=== PATIENT | female | born 1990 | race African-American/Black ===

== ENCOUNTER 2018-04-15 11:28 | Emergency (ER) | payer MEDICAID ==
[~2018-04-15] VITALS: Ht 160 cm; Wt 63.5 kg
[2018-04-15 11:53] VITALS: BP 152/78
[2018-04-15] MEDS ORDERED: SODIUM CHLORIDE 0.9% 1,000 ML IVB ONE (12:53)
[2018-04-15] MEDS ORDERED: LORazepam 2MG/ML-1ML VIAL IV ONE (14:00)
[2018-04-15 14:07] LABS: Basophils # (auto) 0.1 uL; Basophils % (auto) 1.1 % (0.0-2.0); Eosinophils # (auto) 0 uL; Eosinophils % (auto) 0.5 % (0.0-7.0); Hematocrit 47.3 % (36.0-46.0); Hemoglobin 15.6 g/dL (12.2-16.2); Lymphocytes # (auto) 2.5 uL; Lymphocytes % (auto) 32.4 % (10.0-50.0); Mean Corpuscular Hemoglobin 28.4 pg (28.0-32.0); Mean Corpuscular Volume 86.1 fL (80.0-100.0); Monocytes # (auto) 0.3 uL; Monocytes % (auto) 3.3 % (0.0-12.0); Neutrophils # (auto) 4.8 uL; Neutrophils % (auto) 62.7 % (37.0-80.0); Nucleated Red Blood Cells % 0.1 %; Platelet Count (auto) 300 10^3/uL (140-450); Red Blood Cells 5.49 10^6/uL (4.0-5.20); Red Cell Distribution Width 15.4 % (11.8-14.3); White Blood Cell 7.7 10^3/uL (4.4-10.8)
[2018-04-15 14:26] LABS: Alanine Aminotransferase 37 U/L (13-56); Albumin 4.2 g/dL (3.4-5.0); Anion Gap 12 (5-15); Aspartate Aminotransferase 33 U/L (15-37); BUN/Creatinine Ratio 9.7; Blood Urea Nitrogen 10 mg/dL (7-18); Calcium 8.3 mg/dL (8.5-10.1); Carbon Dioxide 22 mmol/L (21-32); Chloride 109 mmol/L (98-107); GFR African American 81 mL/min; GFR Non-African American 67 mL/min; Glucose 75 mg/dL (74-106); Potassium 4.1 mmol/L (3.5-5.1); Sodium 143 mmol/L (136-145)
[2018-04-15 14:38] LABS: Alkaline Phosphatase 78 U/L (45-117); Bilirubin, Total 1.1 mg/dL (0.2-1.0); Total Protein 8.7 g/dL (6.4-8.2)
[2018-04-15 14:46] LABS: Blood Alcohol 329.6 mg/dL (0-5)
== END 2018-04-15 16:16 | disposition left against medical advice (07) ==
LOC: ER 11:28
DX: F32.9 Major depressive disorder, single episode, unspecified (principal); F10.10 Alcohol abuse, uncomplicated; R10.9 Unspecified abdominal pain; J45.909 Unspecified asthma, uncomplicated; F17.210 Nicotine dependence, cigarettes, uncomplicated
CPT/HCPCS: 36415; 80053; 80320; 85025; 94761

== ENCOUNTER 2018-04-28 17:30 | Emergency (ER) | payer MEDICAID ==
[~2018-04-28] VITALS: Ht 160 cm; Wt 66.2 kg
[2018-04-28 18:08] VITALS: BP 119/79
[2018-04-28 18:43] LABS: Urine WBC None Seen /hpf (0 - 5)
[2018-04-28 18:51] LABS: Urine Bacteria NONE SEEN /hpf (None Seen); Urine Blood Negative /uL (Negative); Urine Specific Gravity 1.001 (1.001-1.035)
[2018-04-28 18:55] LABS: Basophils # (auto) 0 uL; Basophils % (auto) 0.5 % (0.0-2.0); Eosinophils # (auto) 0.1 uL; Eosinophils % (auto) 1.7 % (0.0-7.0); Hematocrit 46.9 % (36.0-46.0); Hemoglobin 15.5 g/dL (12.2-16.2); Lymphocytes # (auto) 1.3 uL; Lymphocytes % (auto) 20.6 % (10.0-50.0); Mean Corpuscular Hemoglobin 28.7 pg (28.0-32.0); Mean Corpuscular Hgb Conc. 33.1 g/dL (32.0-36.0); Mean Corpuscular Volume 86.7 fL (80.0-100.0); Monocytes # (auto) 0.4 uL; Monocytes % (auto) 5.6 % (0.0-12.0); Neutrophils # (auto) 4.6 uL; Neutrophils % (auto) 71.6 % (37.0-80.0); Nucleated Red Blood Cells % 0.1 %; Platelet Count (auto) 190 10^3/uL (140-450); Red Blood Cells 5.41 10^6/uL (4.0-5.20); Red Cell Distribution Width 15.7 % (11.8-14.3); White Blood Cell 6.4 10^3/uL (4.4-10.8)
[2018-04-28 19:06] LABS: Amphetamine Screen, Urine NEGATIVE (NEGATIVE); Barbiturate Scree,Urine NEGATIVE (NEGATIVE); Benzodiazephine Screen, Urine NEGATIVE (NEGATIVE); Cannabinoid Screen, Urine NEGATIVE (NEGATIVE); Cocaine Screen, Urine NEGATIVE (NEGATIVE); Opiate Scree,Urine NEGATIVE (NEGATIVE); Phencyclidine Screen, Urine NEGATIVE (NEGATIVE)
[2018-04-28 19:07] LABS: Albumin 4.6 g/dL (3.4-5.0); Potassium 3.4 mmol/L (3.5-5.1)
[2018-04-28 19:08] LABS: Salicylate 2.5 mg/dL (2.8-20.0)
[2018-04-28 19:11] LABS: Bilirubin, Total 0.6 mg/dL (0.2-1.0); Total Protein 9.1 g/dL (6.4-8.2)
[2018-04-28 19:23] LABS: Acetaminophen < 2.0 ug/mL (10-30)
[2018-04-29] MEDS ORDERED: MULTIPLE VITAMIN 10 ML, MAGNESIUM SULF SDV 50% 8 MEQ in SODIUM CHLORIDE 0.9% 1,000 ML IV SCH (12:00)
== END 2018-04-29 01:55 | disposition left against medical advice (07) ==
LOC: ER 17:48
DX: R56.9 Unspecified convulsions (principal); Z53.21 Procedure and treatment not carried out due to patient leaving prior to being seen by health care provider
CPT/HCPCS: 36415; 80053; 80307; 80320; 80329; 81001; 85025; 93005

== ENCOUNTER 2019-10-01 16:40 | Emergency (ER) | payer MEDICAID ==
[~2019-10-01] VITALS: Ht 160 cm; Wt 63.5 kg
[2019-10-01 16:53] VITALS: BP 152/107
[2019-10-01] MEDS ORDERED: KETOROLAC TROMETH 60MG/2ML VIAL IM ONE (17:45)
== END 2019-10-01 18:09 | disposition home or self-care (01) ==
LOC: ER 16:40
DX: H66.93 Otitis media, unspecified, bilateral (principal); F17.210 Nicotine dependence, cigarettes, uncomplicated; J45.909 Unspecified asthma, uncomplicated; F41.9 Anxiety disorder, unspecified; F32.9 Major depressive disorder, single episode, unspecified
CPT/HCPCS: 96372; 99283; J1885

== ENCOUNTER 2019-10-01 18:52 | Emergency (ER) | payer MEDICAID ==
[~2019-10-01] VITALS: Ht 160 cm; Wt 63.5 kg
[2019-10-01 19:03] VITALS: BP 152/105
[2019-10-01] MEDS ORDERED: SODIUM CHLORIDE 0.9% 1,000 ML IV ONE (19:22)
[2019-10-01] MEDS ORDERED: LORazepam 2MG/ML-1ML VIAL IV ONE (19:30)
[2019-10-01] MEDS ORDERED: ONDANSETRON HCL 4 MG/2 ML VIAL IV ONE (19:30)
[2019-10-01 20:23] LABS: Basophils # (auto) 0 10 ^3/uL (0-0.2); Basophils % (auto) 0.8 % (0.0-2.0); Eosinophils # (auto) 0 10 ^3/uL (0-0.8); Eosinophils % (auto) 0.4 % (0.0-7.0); Hematocrit 44.3 % (36.0-46.0); Hemoglobin 14.2 g/dL (12.2-16.2); Lymphocytes # (auto) 1.7 10 ^3/uL (0.4-5.4); Lymphocytes % (auto) 30.5 % (10.0-50.0); Mean Corpuscular Hgb Conc. 32.1 g/dL (32.0-36.0); Mean Corpuscular Volume 87.3 fL (80.0-100.0); Monocytes # (auto) 0.4 10 ^3/uL (0-1.3); Monocytes % (auto) 7.3 % (0.0-12.0); Neutrophils # (auto) 3.4 10 ^3/uL (1.6-8.6); Platelet Count (auto) 145 10^3/uL (140-450); Red Blood Cells 5.08 10^6/uL (4.0-5.20); White Blood Cell 5.5 10^3/uL (4.4-10.8)
[2019-10-01 20:39] LABS: Albumin 3.9 g/dL (3.4-5.0); Calcium 8.7 mg/dL (8.5-10.1); Potassium 3.5 mmol/L (3.5-5.1)
[2019-10-01 20:48] LABS: Bilirubin, Total 0.6 mg/dL (0.2-1.0)
[2019-10-01 20:51] LABS: BUN/Creatinine Ratio 8.2
== END 2019-10-01 23:51 | disposition home or self-care (01) ==
LOC: ER 18:52
DX: F10.239 Alcohol dependence with withdrawal, unspecified (principal)
CPT/HCPCS: 36415; 80053; 80320; 85025

== ENCOUNTER 2020-05-07 09:38 | Inpatient (IN) | payer MEDICAID ==
[~2020-05-07] VITALS: Ht 162.6 cm; Wt 61.2 kg
[2020-05-07] MEDS ORDERED: MORPHINE SULFATE 4 MG/ML SYR/VIAL IV ONE ×2 (10:15→12:30)
[2020-05-07] MEDS ORDERED: PROMETHAZINE HCL 25 MG/ML 1ML IV PRN (10:15)
[2020-05-07] MEDS ORDERED: SODIUM CHLORIDE 0.9% 1,000 ML IV ONE (10:15)
[2020-05-07 10:50] LABS: Basophils # (auto) 0 10 ^3/uL (0-0.2); Basophils % (auto) 0.5 % (0.0-2.0); Eosinophils # (auto) 0 10 ^3/uL (0-0.8); Eosinophils % (auto) 0.6 % (0.0-7.0); Hematocrit 39.9 % (36.0-46.0); Hemoglobin 13.4 g/dL (12.2-16.2); Lymphocytes # (auto) 0.6 10 ^3/uL (0.4-5.4); Lymphocytes % (auto) 9.7 % (10.0-50.0); Mean Corpuscular Hemoglobin 29.8 pg (28.0-32.0); Mean Corpuscular Hgb Conc. 33.7 g/dL (32.0-36.0); Mean Corpuscular Volume 88.6 fL (80.0-100.0); Monocytes # (auto) 0.8 10 ^3/uL (0-1.3); Monocytes % (auto) 12.2 % (0.0-12.0); Neutrophils # (auto) 4.8 10 ^3/uL (1.6-8.6); Nucleated Red Blood Cells % 0.1 %; White Blood Cell 6.2 10^3/uL (4.4-10.8)
[2020-05-07 10:53] LABS: Urine Bacteria FEW /hpf (None Seen); Urine Blood TRACE /uL (Negative); Urine Mucus FEW (None Seen); Urine Specific Gravity 1.035 (1.001-1.035); Urine WBC 4 /hpf (0 - 5)
[2020-05-07 10:54] LABS: Albumin 3.9 g/dL (3.4-5.0); Calcium 9.4 mg/dL (8.5-10.1); Potassium 3.4 mmol/L (3.5-5.1)
[2020-05-07 11:03] LABS: BUN/Creatinine Ratio 12.2; Bilirubin, Total 1.4 mg/dL (0.2-1.0)
[2020-05-07] MEDS ORDERED: SODIUM CHLORIDE 0.9% 1,000 ML IVB ONE (12:30)
[2020-05-07] MEDS ORDERED: METOCLOPRAMIDE HCL 5MG/ml INJ 2ml VIAL IV ONE (12:30)
[2020-05-07] MEDS ORDERED: NITROGLYCERIN 0.4 MG SL TAB SL PRN (13:15)
[2020-05-07] MEDS ORDERED: MORPHINE SULFATE INJECTION 2 MG/ML SYRG IV PRN (13:15)
[2020-05-07] MEDS ORDERED: D5W/LACTATED RINGERS 1,000 ML IV ONE (13:15)
[2020-05-07 13:56] LABS: Alcohol, Urine < 3.0 mg/dL (0-10); Amphetamine Screen, Urine NEGATIVE (NEGATIVE); Barbiturate Scree,Urine NEGATIVE (NEGATIVE); Benzodiazephine Screen, Urine NEGATIVE (NEGATIVE); Cannabinoid Screen, Urine NEGATIVE (NEGATIVE); Cocaine Screen, Urine POSITIVE (NEGATIVE); Opiate Scree,Urine NEGATIVE (NEGATIVE); Phencyclidine Screen, Urine NEGATIVE (NEGATIVE)
[2020-05-07] MEDS ORDERED: ACETAMINOPHEN 500 MG TAB PO PRN (14:30)
[2020-05-07] MEDS ORDERED: cloNIDine HCL 0.1 MG TAB PO PRN (14:30)
[2020-05-07] MEDS: D5W/LACTATED RINGERS 1,000 ML IV SCH ×2 (15:08→21:10)
[2020-05-07] MEDS: ONDANSETRON HCL 4 MG/2 ML VIAL IV PRN (15:58)
[2020-05-07] MEDS: MORPHINE SULFATE INJECTION 2 MG/ML SYRG IV PRN ×3 (15:58→22:00)
[2020-05-07] MEDS ORDERED: LORazepam 2MG/ML-1ML VIAL IV PRN (16:15)
[2020-05-07 16:49] VITALS: BP 121/88
[2020-05-07 17:00] VITALS: BP 121/88
[2020-05-07 21:51] VITALS: BP 140/101
[2020-05-08] MEDS: MORPHINE SULFATE INJECTION 2 MG/ML SYRG IV PRN ×7 (01:06→21:22)
[2020-05-08] MEDS: D5W/LACTATED RINGERS 1,000 ML IV SCH ×4 (03:45→21:45)
[2020-05-08 05:00] VITALS: BP 125/89
[2020-05-08 07:53] LABS: Basophils # (auto) 0 10 ^3/uL (0-0.2); Basophils % (auto) 0.7 % (0.0-2.0); Eosinophils # (auto) 0.1 10 ^3/uL (0-0.8); Eosinophils % (auto) 1.2 % (0.0-7.0); Hematocrit 36.5 % (36.0-46.0); Hemoglobin 12.4 g/dL (12.2-16.2); Lymphocytes # (auto) 0.8 10 ^3/uL (0.4-5.4); Lymphocytes % (auto) 11.4 % (10.0-50.0); Mean Corpuscular Hemoglobin 30.3 pg (28.0-32.0); Mean Corpuscular Hgb Conc. 34.1 g/dL (32.0-36.0); Monocytes # (auto) 0.9 10 ^3/uL (0-1.3); Monocytes % (auto) 12.5 % (0.0-12.0); Neutrophils # (auto) 5.1 10 ^3/uL (1.6-8.6); Neutrophils % (auto) 74.2 % (37.0-80.0); Nucleated Red Blood Cells % 0.1 %; Red Cell Distribution Width 18.4 % (11.8-14.3); White Blood Cell 6.9 10^3/uL (4.4-10.8)
[2020-05-08 08:10] LABS: Albumin 3.5 g/dL (3.4-5.0); BUN/Creatinine Ratio 13.2; Calcium 8.5 mg/dL (8.5-10.1)
[2020-05-08 08:20] LABS: Bilirubin, Total 1.2 mg/dL (0.2-1.0); Total Protein 7.2 g/dL (6.4-8.2)
[2020-05-08] MEDS: PANTOPRAZOLE 40 MG/10 ML VIAL INJ IV SCH (08:52)
[2020-05-08 09:05] VITALS: BP 131/91
[2020-05-08 09:08] LABS: Potassium 3.3 mmol/L (3.5-5.1)
[2020-05-08 13:26] VITALS: BP 149/92
[2020-05-08] MEDS ORDERED: POTASSIUM CHLORIDE 40 MEQ, LIDOCAINE 1% (LOCAL ANESTH.) 4 ML in SODIUM CHL 0.9% 250 ML IV ONE (13:45)
[2020-05-08 16:37] VITALS: BP 151/96
[2020-05-08 22:00] VITALS: BP 141/95
[2020-05-09] MEDS: ONDANSETRON HCL 4 MG/2 ML VIAL IV PRN (00:16)
[2020-05-09] MEDS: MORPHINE SULFATE INJECTION 2 MG/ML SYRG IV PRN ×6 (00:22→22:14)
[2020-05-09 05:00] VITALS: BP 123/76
[2020-05-09] MEDS: D5W/LACTATED RINGERS 1,000 ML IV SCH ×3 (05:45→21:45)
[2020-05-09 06:59] LABS: Albumin 3.4 g/dL (3.4-5.0); Potassium 3.3 mmol/L (3.5-5.1)
[2020-05-09 07:09] LABS: BUN/Creatinine Ratio 6.7; Bilirubin, Total 1.1 mg/dL (0.2-1.0); Total Protein 7.1 g/dL (6.4-8.2)
[2020-05-09 08:06] VITALS: BP 140/80
[2020-05-09] MEDS: PANTOPRAZOLE 40 MG/10 ML VIAL INJ IV SCH (10:57)
[2020-05-09 12:00] VITALS: BP 147/98
[2020-05-09] MEDS ORDERED: POTASSIUM CHLORIDE 40 MEQ, LIDOCAINE 1% (LOCAL ANESTH.) 4 ML in SODIUM CHL 0.9% 250 ML IV ONE ×2 (15:00→18:30)
[2020-05-09] MEDS: MAGNESIUM SULFATE 1GM/100ML 100 ML IV SCH ×2 (16:28→17:33)
[2020-05-09 17:02] VITALS: BP 146/95
[2020-05-09] MEDS: OXYCODONE W/ ACETAMINOPHEN 5/325MG TABLET PO PRN (18:09)
[2020-05-09 22:00] VITALS: BP 131/95
[2020-05-10] MEDS: OXYCODONE W/ ACETAMINOPHEN 5/325MG TABLET PO PRN ×4 (01:25→21:59)
[2020-05-10] MEDS: MORPHINE SULFATE INJECTION 2 MG/ML SYRG IV PRN ×5 (01:35→20:27)
[2020-05-10 05:00] VITALS: BP 131/95
[2020-05-10] MEDS: D5W/LACTATED RINGERS 1,000 ML IV SCH (06:15)
[2020-05-10 07:18] LABS: Basophils # (auto) 0.1 10 ^3/uL (0-0.2); Basophils % (auto) 1.3 % (0.0-2.0); Eosinophils # (auto) 0.1 10 ^3/uL (0-0.8); Eosinophils % (auto) 1.6 % (0.0-7.0); Hematocrit 36.8 % (36.0-46.0); Hemoglobin 12.3 g/dL (12.2-16.2); Lymphocytes # (auto) 0.7 10 ^3/uL (0.4-5.4); Mean Corpuscular Hemoglobin 29.7 pg (28.0-32.0); Mean Corpuscular Hgb Conc. 33.4 g/dL (32.0-36.0); Monocytes # (auto) 0.8 10 ^3/uL (0-1.3); Monocytes % (auto) 13.6 % (0.0-12.0); Neutrophils # (auto) 3.9 10 ^3/uL (1.6-8.6); Neutrophils % (auto) 70.5 % (37.0-80.0); Nucleated Red Blood Cells % 0.1 %; Red Blood Cells 4.14 10^6/uL (4.0-5.20); Red Cell Distribution Width 17.9 % (11.8-14.3); White Blood Cell 5.6 10^3/uL (4.4-10.8)
[2020-05-10 07:33] LABS: INR 1.09 (0.9-1.15)
[2020-05-10 07:41] LABS: Potassium 3.4 mmol/L (3.5-5.1)
[2020-05-10 07:54] LABS: Albumin 3.3 g/dL (3.4-5.0); BUN/Creatinine Ratio 3.6; Calcium 9.1 mg/dL (8.5-10.1); Magnesium 2.3 mg/dL (1.6-2.6); Total Protein 6.8 g/dL (6.4-8.2)
[2020-05-10 08:19] VITALS: BP 154/97
[2020-05-10] MEDS: PANTOPRAZOLE 40 MG/10 ML VIAL INJ IV SCH (09:00)
[2020-05-10] MEDS: POTASSIUM CHLORIDE 40 MEQ in D5W/LACTATED RINGERS 1,000 ML IV SCH ×2 (12:13→23:00)
[2020-05-10 12:44] VITALS: BP 155/108
[2020-05-10 16:24] VITALS: BP 144/96
[2020-05-10 22:23] VITALS: BP 139/101
[2020-05-11] MEDS: MORPHINE SULFATE INJECTION 2 MG/ML SYRG IV PRN ×4 (01:33→15:25)
[2020-05-11 04:00] VITALS: BP 137/99
[2020-05-11 06:52] LABS: Calcium 9.1 mg/dL (8.5-10.1); Potassium 3.5 mmol/L (3.5-5.1)
[2020-05-11 06:54] LABS: BUN/Creatinine Ratio 3.3
[2020-05-11] MEDS: OXYCODONE W/ ACETAMINOPHEN 5/325MG TABLET PO PRN ×3 (07:06→18:16)
[2020-05-11 08:59] VITALS: BP 140/97
[2020-05-11] MEDS: PANTOPRAZOLE 40 MG/10 ML VIAL INJ IV SCH (09:14)
[2020-05-11] MEDS: POTASSIUM CHLORIDE 40 MEQ in D5W/LACTATED RINGERS 1,000 ML IV SCH ×2 (11:46→18:00)
[2020-05-11 13:00] VITALS: BP 128/90
[2020-05-11] MEDS ORDERED: FOLIC ACID 1 MG TAB PO ONE (14:00)
[2020-05-11] MEDS ORDERED: THIAMINE HCL 100 MG TAB PO ONE (14:00)
[2020-05-11] MEDS ORDERED: FOLI1TAB6 PO (14:05)
[2020-05-11] MEDS ORDERED: THIA100T5 PO (14:05)
[2020-05-11 16:45] VITALS: BP 132/97
[2020-05-11 17:37] VITALS: BP 132/97
[2020-05-12] MEDS ORDERED: FOLIC ACID 1 MG TAB PO SCH (10:00)
[2020-05-12] MEDS ORDERED: THIAMINE HCL 100 MG TAB PO SCH (10:00)
== END 2020-05-11 19:47 | disposition home or self-care (01) | DRG 282 ==
LOC: ER 09:38 → TELE 13:15 → TELE-CENTR 16:27
PROVIDERS: ADMIT Hospitalist; ATTEND Hospitalist
DX: K85.10 Biliary acute pancreatitis without necrosis or infection (principal); K70.0 Alcoholic fatty liver; E87.6 Hypokalemia; N39.0 Urinary tract infection, site not specified; N83.202 Unspecified ovarian cyst, left side; Z20.822 Contact with and (suspected) exposure to COVID-19; K80.20 Calculus of gallbladder without cholecystitis without obstruction; R79.89 Other specified abnormal findings of blood chemistry; F41.9 Anxiety disorder, unspecified; F14.10 Cocaine abuse, uncomplicated; E27.8 Other specified disorders of adrenal gland; E87.1 Hypo-osmolality and hyponatremia; F10.20 Alcohol dependence, uncomplicated; F17.210 Nicotine dependence, cigarettes, uncomplicated; J45.909 Unspecified asthma, uncomplicated; F32.9 Major depressive disorder, single episode, unspecified
CPT/HCPCS: 36415; 71045; 74176; 74181; 76705; 80048; 80053; 80307; 81001; 82150; 83690; 83735; 84702; 85025; 85610; 87426; 93005; 96361; 96374; 96375; C9113; G0378; J2001; J2405

== ENCOUNTER 2020-07-22 10:17 | Emergency (ER) | payer MEDICAID ==
[~2020-07-22] VITALS: Ht 160 cm; Wt 59.0 kg
[~2020-07-22 10:17] MED LIST: FOLI1TAB6 PO; THIA100T5 PO
[2020-07-22 10:21] VITALS: BP 148/102
[2020-07-22 10:35] LABS: Urine WBC None Seen /hpf (0 - 5)
[2020-07-22 10:41] LABS: Basophils # (auto) 0 10 ^3/uL (0-0.2); Basophils % (auto) 0.7 % (0.0-2.0); Eosinophils # (auto) 0 10 ^3/uL (0-0.8); Eosinophils % (auto) 0.5 % (0.0-7.0); Hematocrit 39.1 % (36.0-46.0); Lymphocytes % (auto) 17.4 % (10.0-50.0); Mean Corpuscular Hemoglobin 31.3 pg (28.0-32.0); Mean Corpuscular Hgb Conc. 33.3 g/dL (32.0-36.0); Mean Corpuscular Volume 93.9 fL (80.0-100.0); Monocytes # (auto) 0.3 10 ^3/uL (0-1.3); Monocytes % (auto) 4.9 % (0.0-12.0); Neutrophils # (auto) 4.2 10 ^3/uL (1.6-8.6); Neutrophils % (auto) 76.5 % (37.0-80.0); Red Blood Cells 4.16 10^6/uL (4.0-5.20); Red Cell Distribution Width 17.3 % (11.8-14.3); White Blood Cell 5.5 10^3/uL (4.4-10.8)
[2020-07-22 10:51] LABS: Amphetamine Screen, Urine NEGATIVE (NEGATIVE); Barbiturate Scree,Urine NEGATIVE (NEGATIVE); Benzodiazephine Screen, Urine NEGATIVE (NEGATIVE); Cannabinoid Screen, Urine NEGATIVE (NEGATIVE); Cocaine Screen, Urine NEGATIVE (NEGATIVE); Opiate Scree,Urine NEGATIVE (NEGATIVE); Phencyclidine Screen, Urine NEGATIVE (NEGATIVE)
[2020-07-22 10:53] LABS: Urine Amorphous Crystal FEW /hpf (None Seen); Urine Bacteria FEW /hpf (None Seen); Urine Blood Negative /uL (Negative); Urine Mucus FEW (None Seen); Urine Specific Gravity 1.015 (1.001-1.035)
[2020-07-22 10:57] LABS: Albumin 4.1 g/dL (3.4-5.0); Calcium 8.5 mg/dL (8.5-10.1); Potassium 3.2 mmol/L (3.5-5.1)
[2020-07-22 11:02] LABS: BUN/Creatinine Ratio 10.3; Bilirubin, Total 0.7 mg/dL (0.2-1.0); Total Protein 7.9 g/dL (6.4-8.2)
[2020-07-22] MEDS ORDERED: ONDANSETRON HCL 4 MG/2 ML VIAL IV ONE (11:45)
[2020-07-22] MEDS ORDERED: FAMOTIDINE (10MG/ML) 2ML VL IV ONE (11:45)
[2020-07-22] MEDS ORDERED: SODIUM CHLORIDE 0.9% 1,000 ML IV ONE (11:45)
[2020-07-22] MEDS ORDERED: THIAMINE 100mg/ml INJ (200mg/2ml VIAL) IV ONE (13:15)
[2020-07-22] MEDS ORDERED: POTASSIUM EFFERVESENT TAB 25 MEQ PO ONE (13:15)
[2020-07-22] MEDS ORDERED: metroNIDAZOLE 500MG/100ML 100 ML IV ONE (15:45)
[2020-07-22] MEDS ORDERED: cefTRIAXone 1GM/50ML D5W 50 ML IV ONE (15:45)
== END 2020-07-22 14:48 | disposition left against medical advice (07) ==
LOC: ER 10:17
DX: F10.129 Alcohol abuse with intoxication, unspecified (principal); E87.6 Hypokalemia; K85.90 Acute pancreatitis without necrosis or infection, unspecified; J45.909 Unspecified asthma, uncomplicated; F17.210 Nicotine dependence, cigarettes, uncomplicated; Z79.899 Other long term (current) drug therapy; Y90.8 Blood alcohol level of 240 mg/100 ml or more
CPT/HCPCS: 36415; 80053; 80307; 81001; 81025; 83690; 85025

== ENCOUNTER 2020-07-26 13:46 | Inpatient (IN) | payer MEDICAID ==
[~2020-07-26] VITALS: Ht 160 cm; Wt 64.0 kg
[2020-07-26] MEDS ORDERED: PANTOPRAZOLE 40 MG/10 ML VIAL INJ IV STA (14:05)
[2020-07-26] MEDS ORDERED: ONDANSETRON HCL 4 MG/2 ML VIAL IV ONE (14:15)
[2020-07-26] MEDS ORDERED: SODIUM CHLORIDE 0.9% 1,000 ML IVB ONE (14:15)
[2020-07-26] MEDS ORDERED: MORPHINE SULFATE 4 MG/ML SYR/VIAL IV ONE (14:15)
[2020-07-26 15:02] LABS: Urine Bacteria FEW /hpf (None Seen); Urine Blood Negative /uL (Negative); Urine Mucus FEW (None Seen); Urine Specific Gravity 1.022 (1.001-1.035); Urine WBC 5 /hpf (0 - 5)
[2020-07-26 15:25] LABS: Basophils # (auto) 0.1 10 ^3/uL (0-0.2); Basophils % (auto) 2.4 % (0.0-2.0); Eosinophils # (auto) 0 10 ^3/uL (0-0.8); Eosinophils % (auto) 0.5 % (0.0-7.0); Hematocrit 35.1 % (36.0-46.0); Hemoglobin 12.2 g/dL (12.2-16.2); Lymphocytes # (auto) 1.5 10 ^3/uL (0.4-5.4); Lymphocytes % (auto) 37.1 % (10.0-50.0); Mean Corpuscular Hemoglobin 32.2 pg (28.0-32.0); Mean Corpuscular Hgb Conc. 34.7 g/dL (32.0-36.0); Mean Corpuscular Volume 92.9 fL (80.0-100.0); Monocytes # (auto) 0.3 10 ^3/uL (0-1.3); Monocytes % (auto) 7.6 % (0.0-12.0); Neutrophils # (auto) 2.1 10 ^3/uL (1.6-8.6); Neutrophils % (auto) 52.4 % (37.0-80.0); Nucleated Red Blood Cells % 0.3 %; Platelet Count (auto) 208 10^3/uL (140-450); Red Blood Cells 3.78 10^6/uL (4.0-5.20); Red Cell Distribution Width 17.5 % (11.8-14.3); White Blood Cell 4.1 10^3/uL (4.4-10.8)
[2020-07-26 15:34] LABS: Calcium 8.8 mg/dL (8.5-10.1)
[2020-07-26 15:49] LABS: Albumin 4.4 g/dL (3.4-5.0); BUN/Creatinine Ratio 13.5; Bilirubin, Total 1.1 mg/dL (0.2-1.0); Total Protein 8.1 g/dL (6.4-8.2)
[2020-07-26] MEDS ORDERED: PROMETHAZINE HCL 25 MG/ML 1ML IV PRN (20:45)
[2020-07-26] MEDS ORDERED: NITROGLYCERIN 0.4 MG SL TAB SL PRN (20:45)
[2020-07-26] MEDS ORDERED: MORPHINE SULF INJ 2 MG/ML SYRINGE 1ML IV PRN (20:45)
[2020-07-26] MEDS ORDERED: ACETAMINOPHEN 500 MG TAB PO PRN (20:45)
[2020-07-26] MEDS ORDERED: IOHEXOL 300 MG/ML 100ML BOTTLE IJ ONE (21:04)
[2020-07-26 21:24] LABS: Amphetamine Screen, Urine NEGATIVE (NEGATIVE); Barbiturate Scree,Urine NEGATIVE (NEGATIVE); Benzodiazephine Screen, Urine NEGATIVE (NEGATIVE); Cannabinoid Screen, Urine NEGATIVE (NEGATIVE); Cocaine Screen, Urine NEGATIVE (NEGATIVE); Opiate Scree,Urine NEGATIVE (NEGATIVE)
[2020-07-26 21:33] LABS: Phencyclidine Screen, Urine NEGATIVE (NEGATIVE)
[2020-07-26] MEDS: FAMOTIDINE (10MG/ML) 2ML VL IV SCH (22:49)
[2020-07-26] MEDS: MORPHINE SULFATE 4 MG/ML SYR/VIAL IV PRN (23:53)
[2020-07-27] MEDS: SODIUM CHLORIDE 0.9% 1,000 ML IV SCH ×2 (00:15→10:00)
[2020-07-27 00:43] VITALS: BP_SYST 138
[2020-07-27] MEDS ORDERED: SODIUM CHLORIDE 0.9% 1,000 ML IV ONE (02:30)
[2020-07-27] MEDS: POTASSIUM CHL 20MEQ/100ML 100 ML IV SCH ×2 (02:44→04:43)
[2020-07-27 04:01] LABS: Basophils # (auto) 0 10 ^3/uL (0-0.2); Basophils % (auto) 0.3 % (0.0-2.0); Eosinophils # (auto) 0 10 ^3/uL (0-0.8); Eosinophils % (auto) 0.3 % (0.0-7.0); Hematocrit 34.6 % (36.0-46.0); Hemoglobin 11.5 g/dL (12.2-16.2); Lymphocytes # (auto) 0.9 10 ^3/uL (0.4-5.4); Lymphocytes % (auto) 19.8 % (10.0-50.0); Mean Corpuscular Hemoglobin 31.2 pg (28.0-32.0); Mean Corpuscular Hgb Conc. 33.2 g/dL (32.0-36.0); Monocytes # (auto) 0.4 10 ^3/uL (0-1.3); Monocytes % (auto) 7.7 % (0.0-12.0); Neutrophils # (auto) 3.4 10 ^3/uL (1.6-8.6); Neutrophils % (auto) 71.9 % (37.0-80.0); Nucleated Red Blood Cells % 0.1 %; Platelet Count (auto) 186 10^3/uL (140-450); Red Blood Cells 3.68 10^6/uL (4.0-5.20); Red Cell Distribution Width 17.2 % (11.8-14.3); White Blood Cell 4.8 10^3/uL (4.4-10.8)
[2020-07-27] MEDS: MORPHINE SULFATE 4 MG/ML SYR/VIAL IV PRN ×5 (04:09→23:11)
[2020-07-27 04:22] LABS: Albumin 3.3 g/dL (3.4-5.0); Calcium 7.6 mg/dL (8.5-10.1); Potassium 3.2 mmol/L (3.5-5.1)
[2020-07-27 04:25] LABS: BUN/Creatinine Ratio 13.2; Bilirubin, Total 1.5 mg/dL (0.2-1.0); Total Protein 6.4 g/dL (6.4-8.2)
[2020-07-27 05:04] VITALS: BP 138/87
[2020-07-27 09:00] VITALS: BP 154/96
[2020-07-27] MEDS: FAMOTIDINE (10MG/ML) 2ML VL IV SCH ×2 (09:47→21:13)
[2020-07-27] MEDS ORDERED: SERTRALINE HCL 50 MG TAB PO SCH (10:00)
[2020-07-27] MEDS: LACTATED RINGER'S 1,000 ML IV SCH ×2 (12:17→17:55)
[2020-07-27 13:00] VITALS: BP 128/97
[2020-07-27 16:33] VITALS: BP 139/93
[2020-07-27] MEDS ORDERED: FOLIC ACID 1 MG TAB PO SCH (18:30)
[2020-07-27] MEDS ORDERED: THIAMINE HCL 100 MG TAB PO SCH (18:30)
[2020-07-27] MEDS ORDERED: chlordiazePOXIDE HCL 25 MG CAP PO PRN (18:30)
[2020-07-27] MEDS: GABAPENTIN 300 MG CAP PO SCH (21:13)
[2020-07-27 22:00] VITALS: BP 141/84
[2020-07-28] MEDS: LACTATED RINGER'S 1,000 ML IV SCH ×3 (00:27→13:55)
[2020-07-28] MEDS: MORPHINE SULFATE 4 MG/ML SYR/VIAL IV PRN ×3 (03:38→11:50)
[2020-07-28 05:00] VITALS: BP 142/93
[2020-07-28] MEDS: GABAPENTIN 300 MG CAP PO SCH ×2 (05:29→14:16)
[2020-07-28 09:00] VITALS: BP 133/90
[2020-07-28] MEDS: FAMOTIDINE (10MG/ML) 2ML VL IV SCH (09:12)
[2020-07-28 13:00] VITALS: BP 144/91
[2020-07-28] MEDS ORDERED: THIA100T5 PO (14:44)
[2020-07-28] MEDS ORDERED: FOLI1TAB6 PO (14:44)
[2020-07-28] MEDS ORDERED: GABA300C10 PO (14:44)
== END 2020-07-28 16:05 | disposition home health service (06) | DRG 282 ==
LOC: ER 13:53 → OVERFLOW 20:43 → WEST WING 23:31
PROVIDERS: ADMIT Hospitalist; ATTEND Hospitalist
DX: K85.20 Alcohol induced acute pancreatitis without necrosis or infection (principal); F10.129 Alcohol abuse with intoxication, unspecified; J45.909 Unspecified asthma, uncomplicated; Z20.822 Contact with and (suspected) exposure to COVID-19; F17.210 Nicotine dependence, cigarettes, uncomplicated; Y90.8 Blood alcohol level of 240 mg/100 ml or more
CPT/HCPCS: 36415; 74177; 80053; 80307; 80320; 81001; 81025; 82150; 83690; 85025; 87081; 87426; 96361; 96374; 96375; C9113; G0378; J2405; J3480; J3490

== ENCOUNTER 2020-10-12 09:51 | Inpatient (IN) | payer MEDICAID ==
[~2020-10-12] VITALS: Ht 160 cm; Wt 61.2 kg
[~2020-10-12 09:51] MED LIST changes: +GABA300C10 PO
[2020-10-12 09:56] VITALS: BP 136/101
[2020-10-12 10:22] LABS: Urine Bacteria FEW /hpf (None Seen); Urine Blood 1+ /uL (Negative); Urine Mucus FEW (None Seen); Urine Specific Gravity 1.024 (1.001-1.035); Urine WBC 259 /hpf (0 - 5)
[2020-10-12 10:37] LABS: Basophils # (auto) 0.1 10 ^3/uL (0-0.2); Basophils % (auto) 0.8 % (0.0-2.0); Eosinophils # (auto) 0 10 ^3/uL (0-0.8); Eosinophils % (auto) 0.1 % (0.0-7.0); Hematocrit 38.4 % (36.0-46.0); Hemoglobin 12.9 g/dL (12.2-16.2); Mean Corpuscular Hemoglobin 28.8 pg (28.0-32.0); Mean Corpuscular Hgb Conc. 33.5 g/dL (32.0-36.0); Mean Corpuscular Volume 85.9 fL (80.0-100.0); Monocytes # (auto) 0.7 10 ^3/uL (0-1.3); Monocytes % (auto) 5.6 % (0.0-12.0); Neutrophils # (auto) 10.9 10 ^3/uL (1.6-8.6); Neutrophils % (auto) 85.5 % (37.0-80.0); Red Blood Cells 4.47 10^6/uL (4.0-5.20); Red Cell Distribution Width 15.5 % (11.8-14.3); White Blood Cell 12.7 10^3/uL (4.4-10.8)
[2020-10-12] MEDS ORDERED: SODIUM CHLORIDE 0.9% 1,000 ML IV ONE (11:00)
[2020-10-12] MEDS ORDERED: SODIUM CHLORIDE 0.9% 500 ML IVB ONE (11:00)
[2020-10-12 11:02] LABS: Albumin 3.8 g/dL (3.4-5.0); Calcium 9.2 mg/dL (8.5-10.1); Potassium 3.3 mmol/L (3.5-5.1)
[2020-10-12 11:11] LABS: BUN/Creatinine Ratio 11.6; Total Protein 8.9 g/dL (6.4-8.2)
[2020-10-12] MEDS ORDERED: cefTRIAXone 1GM/50ML D5W 50 ML IV ONE (11:15)
[2020-10-12 11:58] LABS: Beta HCG, Quantitative < 1 mlU/mL (1-3); Thyroid Stimulating Hormone 1.43 uIU/mL (0.358-3.74)
[2020-10-12] MEDS ORDERED: METOCLOPRAMIDE HCL 5MG/ml INJ 2ml VIAL IV ONE (12:00)
[2020-10-12] MEDS ORDERED: HYDROmorphone HCL 2 MG/ML VL IV ONE (12:00)
[2020-10-12 12:23] LABS: Amphetamine Screen, Urine NEGATIVE (NEGATIVE); Barbiturate Scree,Urine NEGATIVE (NEGATIVE); Benzodiazephine Screen, Urine NEGATIVE (NEGATIVE); Cannabinoid Screen, Urine POSITIVE (NEGATIVE); Cocaine Screen, Urine POSITIVE (NEGATIVE); Opiate Scree,Urine NEGATIVE (NEGATIVE); Phencyclidine Screen, Urine NEGATIVE (NEGATIVE)
[2020-10-12] MEDS ORDERED: D5W/SOD CHLO 0.9% 1,000 ML IV SCH (13:30)
[2020-10-12] MEDS ORDERED: ONDANSETRON HCL 4 MG/2 ML VIAL IV PRN (13:30)
[2020-10-12] MEDS ORDERED: NITROGLYCERIN 0.4 MG SL TAB SL PRN (13:30)
[2020-10-12] MEDS ORDERED: ACETAMINOPHEN 650 mg PER 20.3 mL UD PO PRN (13:30)
[2020-10-12] MEDS ORDERED: HYDROcodone-ACET 10/325MG TAB PO PRN (13:30)
[2020-10-12] MEDS ORDERED: MORPHINE SULFATE INJECTION 2 MG/ML SYRG IV PRN ×2 (13:30)
[2020-10-12] MEDS ORDERED: MORPHINE SULFATE INJECTION 2 MG/ML SYRG IV ONE (15:00)
[2020-10-12] MEDS ORDERED: POTASSIUM CHL 20MEQ/50ML 50 ML IV ONE (15:00)
[2020-10-12] MEDS ORDERED: FAMOTIDINE 20 MG TAB PO SCH (22:00)
[2020-10-13] MEDS ORDERED: ENOXAPARIN SOD 40 MG/0.4 ML SYRINGE SC SCH (10:00)
[2020-10-13] MEDS ORDERED: FOLIC ACID 1 MG, MULTIPLE VITAMIN 10 ML, MAGNESIUM SULF SDV 50% 8 MEQ, THIAMINE INJ 100... INJ SCH ×5 (12:00)
== END 2020-10-13 04:30 | disposition left against medical advice (07) | DRG 282 ==
LOC: ER 09:51 → TELE 13:17
PROVIDERS: ADMIT Internal Medicine; ATTEND Internal Medicine
DX: K85.20 Alcohol induced acute pancreatitis without necrosis or infection (principal); K76.0 Fatty (change of) liver, not elsewhere classified; N30.90 Cystitis, unspecified without hematuria; E87.6 Hypokalemia; K80.20 Calculus of gallbladder without cholecystitis without obstruction; F10.20 Alcohol dependence, uncomplicated; F14.90 Cocaine use, unspecified, uncomplicated; Y90.0 Blood alcohol level of less than 20 mg/100 ml; F12.90 Cannabis use, unspecified, uncomplicated; F17.210 Nicotine dependence, cigarettes, uncomplicated; F32.9 Major depressive disorder, single episode, unspecified; Z53.29 Procedure and treatment not carried out because of patient's decision for other reasons; F41.9 Anxiety disorder, unspecified; Z79.899 Other long term (current) drug therapy; D72.829 Elevated white blood cell count, unspecified
CPT/HCPCS: 36415; 71046; 74176; 80053; 80307; 81001; 82150; 83690; 83735; 84443; 84702; 85025; 93005; 96374; G0378; J0696

== ENCOUNTER 2020-12-17 20:55 | Emergency (ER) | payer MEDICAID ==
[~2020-12-17] VITALS: Ht 160 cm; Wt 63.5 kg
[2020-12-17 21:23] VITALS: BP 125/70
[2020-12-17] MEDS ORDERED: SODIUM CHLORIDE 0.9% 1,000 ML IV ONE (22:30)
[2020-12-17] MEDS ORDERED: FOLIC ACID 1 MG in D5W 5% 50 ML INJ ONE (22:30)
[2020-12-17] MEDS ORDERED: THIAMINE 100mg/ml INJ (200mg/2ml VIAL) IV ONE (22:30)
[2020-12-17] MEDS ORDERED: chlordiazePOXIDE HCL 25 MG CAP PO ONE (22:30)
[2020-12-17] MEDS ORDERED: FAMOTIDINE (10MG/ML) 2ML VL IV ONE (22:30)
[2020-12-17 22:55] LABS: Basophils # (auto) 0.1 10 ^3/uL (0-0.2); Basophils % (auto) 1.5 % (0.0-2.0); Eosinophils # (auto) 0 10 ^3/uL (0-0.8); Eosinophils % (auto) 0.5 % (0.0-7.0); Hematocrit 42.4 % (36.0-46.0); Hemoglobin 13.9 g/dL (12.2-16.2); Lymphocytes # (auto) 1.7 10 ^3/uL (0.4-5.4); Lymphocytes % (auto) 33.5 % (10.0-50.0); Mean Corpuscular Hemoglobin 28.4 pg (28.0-32.0); Mean Corpuscular Hgb Conc. 32.8 g/dL (32.0-36.0); Mean Corpuscular Volume 86.5 fL (80.0-100.0); Monocytes # (auto) 0.3 10 ^3/uL (0-1.3); Monocytes % (auto) 4.8 % (0.0-12.0); Neutrophils # (auto) 3.1 10 ^3/uL (1.6-8.6); Neutrophils % (auto) 59.7 % (37.0-80.0); Red Cell Distribution Width 17.3 % (11.8-14.3); White Blood Cell 5.2 10^3/uL (4.4-10.8)
[2020-12-17 23:16] LABS: Potassium 3.8 mmol/L (3.5-5.1)
[2020-12-17 23:20] LABS: BUN/Creatinine Ratio 11.5; Calcium 8.6 mg/dL (8.5-10.1)
[2020-12-17 23:24] LABS: Total Protein 8.4 g/dL (6.4-8.2)
== END 2020-12-18 00:37 | disposition left against medical advice (07) ==
LOC: EDBD 20:55 → ER 21:02
DX: R45.851 Suicidal ideations (principal); F10.129 Alcohol abuse with intoxication, unspecified; F41.9 Anxiety disorder, unspecified; J45.909 Unspecified asthma, uncomplicated; F32.9 Major depressive disorder, single episode, unspecified; F17.210 Nicotine dependence, cigarettes, uncomplicated; Y90.8 Blood alcohol level of 240 mg/100 ml or more
CPT/HCPCS: 36415; 80053; 80320; 80329; 85025; 99285; J7060; 93005

== ENCOUNTER 2021-10-02 07:54 | Emergency (ER) | payer MEDICAID ==
[~2021-10-02] VITALS: Ht 167.6 cm; Wt 77.0 kg
[2021-10-02] MEDS ORDERED: NALOXONE HCL 0.4 MG/ML VIAL IV ONE (08:15)
[2021-10-02] MEDS ORDERED: SODIUM CHLORIDE 0.9% 1,000 ML IV ONE ×3 (08:30→13:30)
[2021-10-02 09:59] LABS: Basophils # (auto) 0.1 10 ^3/uL (0-0.2); Basophils % (auto) 1.2 % (0.0-2.0); Eosinophils # (auto) 0.2 10 ^3/uL (0-0.8); Eosinophils % (auto) 2.8 % (0.0-7.0); Hematocrit 29.3 % (36.0-46.0); Hemoglobin 9.9 g/dL (12.2-16.2); Lymphocytes # (auto) 3.4 10 ^3/uL (0.4-5.4); Lymphocytes % (auto) 38.8 % (10.0-50.0); Mean Corpuscular Hgb Conc. 33.8 g/dL (32.0-36.0); Mean Corpuscular Volume 82.9 fL (80.0-100.0); Monocytes # (auto) 0.3 10 ^3/uL (0-1.3); Monocytes % (auto) 3.2 % (0.0-12.0); Neutrophils # (auto) 4.7 10 ^3/uL (1.6-8.6); Red Blood Cells 3.54 10^6/uL (4.0-5.20); Red Cell Distribution Width 14.9 % (11.8-14.3); White Blood Cell 8.7 10^3/uL (4.4-10.8)
[2021-10-02] MEDS ORDERED: THIAMINE 100mg/ml INJ (200mg/2ml VIAL) IV ONE (10:15)
[2021-10-02 10:22] LABS: Urine Bacteria NONE SEEN /hpf (None Seen); Urine Blood Negative /uL (Negative); Urine Specific Gravity 1.007 (1.001-1.035); Urine WBC <1 /hpf (0 - 5)
[2021-10-02 10:33] LABS: Calcium 8.4 mg/dL (8.5-10.1); Magnesium 2.2 mg/dL (1.6-2.6)
[2021-10-02 10:43] LABS: Albumin 3.7 g/dL (3.4-5.0); BUN/Creatinine Ratio 13.5; Bilirubin, Total 0.4 mg/dL (0.2-1.0); Total Protein 7.8 g/dL (6.4-8.2)
[2021-10-02 10:46] LABS: Amphetamine Screen, Urine NEGATIVE (NEGATIVE); Barbiturate Scree,Urine NEGATIVE (NEGATIVE); Benzodiazephine Screen, Urine POSITIVE (NEGATIVE); Cannabinoid Screen, Urine NEGATIVE (NEGATIVE)
[2021-10-02 10:48] LABS: Cocaine Screen, Urine NEGATIVE (NEGATIVE); Opiate Scree,Urine NEGATIVE (NEGATIVE); Phencyclidine Screen, Urine NEGATIVE (NEGATIVE)
[2021-10-02 10:55] LABS: Alcohol, Urine > 300.0 mg/dL (0-10)
[2021-10-02 11:27] LABS: Blood Alcohol 419.2 mg/dL (0-5)
[2021-10-02 12:51] LABS: Lactic Acid w/Reflex 2.5 mmol/L (0.4-2.0)
[2021-10-02 13:06] LABS: Acetaminophen < 2.0 ug/mL (10-30); Salicylate 2.2 mg/dL (2.8-20.0)
[2021-10-02 14:00] VITALS: BP 140/90
== END 2021-10-02 14:10 | disposition left against medical advice (07) ==
LOC: EDBD 07:54 → ER 07:54
DX: R41.82 Altered mental status, unspecified (principal); D64.9 Anemia, unspecified; F10.10 Alcohol abuse, uncomplicated; J45.909 Unspecified asthma, uncomplicated; F17.210 Nicotine dependence, cigarettes, uncomplicated; Z79.899 Other long term (current) drug therapy; Y90.8 Blood alcohol level of 240 mg/100 ml or more
CPT/HCPCS: 36415; 70450; 71045; 80053; 80307; 80320; 80329; 81001; 82140; 82550; 83605; 83735; 84484; 84702; 85025; 96361; 96374; 99285; J3411; J7030

== ENCOUNTER 2021-10-22 01:25 | Inpatient (IN) | payer MEDICAID ==
[~2021-10-22] VITALS: Ht 160 cm; Wt 68.9 kg
[2021-10-22 03:21] LABS: Basophils # (auto) 0.1 10 ^3/uL (0-0.2); Basophils % (auto) 0.4 % (0.0-2.0); Eosinophils # (auto) 0 10 ^3/uL (0-0.8); Hematocrit 36.9 % (36.0-46.0); Lymphocytes # (auto) 0.6 10 ^3/uL (0.4-5.4); Lymphocytes % (auto) 4.6 % (10.0-50.0); Mean Corpuscular Hemoglobin 27.2 pg (28.0-32.0); Mean Corpuscular Hgb Conc. 32.7 g/dL (32.0-36.0); Mean Corpuscular Volume 83.4 fL (80.0-100.0); Monocytes # (auto) 0.8 10 ^3/uL (0-1.3); Monocytes % (auto) 6.2 % (0.0-12.0); Neutrophils # (auto) 12.1 10 ^3/uL (1.6-8.6); Neutrophils % (auto) 88.8 % (37.0-80.0); Red Blood Cells 4.42 10^6/uL (4.0-5.20); Red Cell Distribution Width 16.5 % (11.8-14.3); White Blood Cell 13.6 10^3/uL (4.4-10.8)
[2021-10-22 03:39] LABS: Albumin 4.6 g/dL (3.4-5.0); Calcium 9.6 mg/dL (8.5-10.1)
[2021-10-22 03:42] LABS: Bilirubin, Total 1.2 mg/dL (0.2-1.0); Total Protein 8.8 g/dL (6.4-8.2)
[2021-10-22 03:51] LABS: BUN/Creatinine Ratio 8.6
[2021-10-22] MEDS ORDERED: SODIUM CHLORIDE 0.9% 1,000 ML IV ONE (05:15)
[2021-10-22] MEDS ORDERED: MORPHINE SULFATE 4 MG/ML SYR/VIAL IV ONE ×2 (05:15→07:45)
[2021-10-22] MEDS ORDERED: ONDANSETRON HCL 4 MG/2 ML VIAL IV ONE (05:15)
[2021-10-22] MEDS ORDERED: SODIUM CHLORIDE 0.9% 1,000 ML IVB ONE (07:45)
[2021-10-22] MEDS ORDERED: METOCLOPRAMIDE HCL 5MG/ml INJ 2ml VIAL IV ONE (07:45)
[2021-10-22] MEDS ORDERED: POTASSIUM EFFERVESENT TAB 25 MEQ PO ONE (08:15)
[2021-10-22] MEDS ORDERED: MAGNESIUM SULFATE 1GM/100ML 100 ML IV ONE (11:00)
[2021-10-22] MEDS ORDERED: hydrALAZINE HCL 20 MG/ML VL IV PRN (11:00)
[2021-10-22] MEDS ORDERED: HYDROmorphone HCL 2 MG/ML VL/or syr IV PRN (11:00)
[2021-10-22] MEDS ORDERED: THIAMINE 100mg/ml INJ (200mg/2ml VIAL) IV ONE (11:00)
[2021-10-22] MEDS ORDERED: SODIUM CHLORIDE 0.9% 1,000 ML IV SCH (11:00)
[2021-10-22 11:30] LABS: Alcohol, Urine < 3.0 mg/dL (0-10); Amphetamine Screen, Urine NEGATIVE (NEGATIVE); Barbiturate Scree,Urine NEGATIVE (NEGATIVE); Benzodiazephine Screen, Urine NEGATIVE (NEGATIVE); Cannabinoid Screen, Urine NEGATIVE (NEGATIVE); Cocaine Screen, Urine POSITIVE (NEGATIVE); Opiate Scree,Urine POSITIVE (NEGATIVE); Phencyclidine Screen, Urine NEGATIVE (NEGATIVE)
[2021-10-22 11:44] LABS: INR 1.08 (0.9-1.15)
[2021-10-22 11:55] LABS: Urine Bacteria FEW /hpf (None Seen); Urine Blood TRACE /uL (Negative); Urine Specific Gravity 1.049 (1.001-1.035); Urine WBC 3 /hpf (0 - 5)
[2021-10-22] MEDS: LACTATED RINGER'S 1,000 ML IV SCH ×2 (12:15→16:44)
[2021-10-22] MEDS: HYDROmorphone HCL 2 MG/ML VL/or syr IV PRN ×3 (12:44→23:32)
[2021-10-22] MEDS ORDERED: SERT-160 PO (15:46)
[2021-10-22] MEDS ORDERED: HYDR1SOL36 (15:46)
[2021-10-22 17:00] VITALS: BP 137/99
[2021-10-22 19:24] LABS: BUN/Creatinine Ratio 10.1; Calcium 8.3 mg/dL (8.5-10.1); Potassium 3.2 mmol/L (3.5-5.1)
[2021-10-22 22:00] VITALS: BP 151/109
[2021-10-23 04:50] LABS: Basophils # (auto) 0 10 ^3/uL (0-0.2); Basophils % (auto) 0.3 % (0.0-2.0); Eosinophils # (auto) 0.1 10 ^3/uL (0-0.8); Eosinophils % (auto) 0.7 % (0.0-7.0); Hematocrit 36.8 % (36.0-46.0); Hemoglobin 11.8 g/dL (12.2-16.2); Lymphocytes # (auto) 0.9 10 ^3/uL (0.4-5.4); Lymphocytes % (auto) 7.7 % (10.0-50.0); Mean Corpuscular Hemoglobin 27.2 pg (28.0-32.0); Mean Corpuscular Hgb Conc. 32.1 g/dL (32.0-36.0); Mean Corpuscular Volume 84.6 fL (80.0-100.0); Monocytes % (auto) 7.9 % (0.0-12.0); Neutrophils # (auto) 10.1 10 ^3/uL (1.6-8.6); Neutrophils % (auto) 83.4 % (37.0-80.0); Nucleated Red Blood Cells % 0.1 %; Red Blood Cells 4.35 10^6/uL (4.0-5.20); Red Cell Distribution Width 16.6 % (11.8-14.3); White Blood Cell 12.2 10^3/uL (4.4-10.8)
[2021-10-23 05:00] VITALS: BP 124/88
[2021-10-23 05:04] LABS: Calcium 8.5 mg/dL (8.5-10.1); Potassium 3.4 mmol/L (3.5-5.1)
[2021-10-23] MEDS: HYDROmorphone HCL 2 MG/ML VL/or syr IV PRN ×5 (05:06→23:11)
[2021-10-23 05:10] LABS: Albumin 3.6 g/dL (3.4-5.0); BUN/Creatinine Ratio 14.3; Bilirubin, Total 0.8 mg/dL (0.2-1.0); Total Protein 7.6 g/dL (6.4-8.2)
[2021-10-23] MEDS: LACTATED RINGER'S 1,000 ML IV SCH ×4 (06:04→23:11)
[2021-10-23 09:00] VITALS: BP 118/86
[2021-10-23] MEDS: THIAMINE 100mg/ml INJ (200mg/2ml VIAL) IV SCH (09:52)
[2021-10-23 13:00] VITALS: BP 125/92
[2021-10-23 17:00] VITALS: BP 120/81
[2021-10-23] MEDS ORDERED: POTASSIUM CHL 20 Meq TABLET PO ONE (19:30)
[2021-10-23 19:44] LABS: Urine Amorphous Crystal FEW /hpf (None Seen); Urine Bacteria FEW /hpf (None Seen); Urine Blood 1+ /uL (Negative); Urine Mucus FEW (None Seen); Urine Specific Gravity 1.029 (1.001-1.035); Urine WBC 725 /hpf (0 - 5); Urine WBC Clumps PRESENT /hpf (None Seen)
[2021-10-23] MEDS ORDERED: POTASSIUM CHLORIDE 40 MEQ in D5W/LACTATED RINGERS 1,000 ML IV SCH (21:00)
[2021-10-23 22:00] VITALS: BP 138/100
[2021-10-23] MEDS: PANTOPRAZOLE 40 MG/10 ML VIAL INJ IV SCH (22:33)
[2021-10-24] MEDS: HYDROmorphone HCL 2 MG/ML VL/or syr IV PRN ×6 (02:54→23:50)
[2021-10-24 05:00] VITALS: BP 123/83
[2021-10-24 06:33] LABS: BUN/Creatinine Ratio 12.3; Potassium 3.5 mmol/L (3.5-5.1)
[2021-10-24 06:34] LABS: Bilirubin, Total 0.6 mg/dL (0.2-1.0); Calcium 8.6 mg/dL (8.5-10.1); Total Protein 6.1 g/dL (6.4-8.2)
[2021-10-24] MEDS: LACTATED RINGER'S 1,000 ML IV SCH ×2 (06:57→14:00)
[2021-10-24 08:10] VITALS: BP 132/91
[2021-10-24] MEDS: cefTRIAXone 1GM/50ML D5W 50 ML IV SCH (09:00)
[2021-10-24] MEDS: THIAMINE 100mg/ml INJ (200mg/2ml VIAL) IV SCH (10:00)
[2021-10-24] MEDS: PANTOPRAZOLE 40 MG/10 ML VIAL INJ IV SCH ×2 (10:00→21:58)
[2021-10-24] MEDS ORDERED: SULF400T11 PO (11:44)
[2021-10-24] MEDS ORDERED: PANT40T PO (11:44)
[2021-10-24 17:00] VITALS: BP 155/93
[2021-10-24 22:00] VITALS: BP 139/83
[2021-10-25] MEDS: HYDROmorphone HCL 2 MG/ML VL/or syr IV PRN ×3 (03:39→13:50)
[2021-10-25 05:00] VITALS: BP 146/88
[2021-10-25 08:00] VITALS: BP 160/111
[2021-10-25 09:00] VITALS: BP 160/111
[2021-10-25] MEDS: cefTRIAXone 1GM/50ML D5W 50 ML IV SCH (09:18)
[2021-10-25] MEDS: PANTOPRAZOLE 40 MG/10 ML VIAL INJ IV SCH ×2 (09:19→21:40)
[2021-10-25] MEDS: THIAMINE 100mg/ml INJ (200mg/2ml VIAL) IV SCH (09:19)
[2021-10-25 13:00] VITALS: BP 146/77
[2021-10-25] MEDS ORDERED: MAGNESIUM CITRATE SOLUTION 300 ML BTL PO ONE (16:00)
[2021-10-25 17:00] VITALS: BP 152/75
[2021-10-25] MEDS: KETOROLAC TROMETH 30 MG/ML 1ML VIAL IV PRN ×2 (17:08→23:03)
[2021-10-25 22:00] VITALS: BP_SYST 146; BP_SYST 161; BP_DIAS 102; BP_DIAS 71
[2021-10-26 05:04] VITALS: BP 132/85
[2021-10-26] MEDS: KETOROLAC TROMETH 30 MG/ML 1ML VIAL IV PRN ×2 (05:49→12:31)
[2021-10-26 09:00] VITALS: BP 144/96
[2021-10-26] MEDS: THIAMINE 100mg/ml INJ (200mg/2ml VIAL) IV SCH (09:41)
[2021-10-26] MEDS: PANTOPRAZOLE 40 MG/10 ML VIAL INJ IV SCH (09:41)
[2021-10-26] MEDS: cefTRIAXone 1GM/50ML D5W 50 ML IV SCH (09:47)
[2021-10-26 12:35] VITALS: BP 141/102
[2021-10-26] MEDS ORDERED: TRAM-297 PO (13:57)
[2021-10-26] MEDS ORDERED: PANC12002 PO (13:57)
== END 2021-10-26 16:19 | disposition home or self-care (01) | DRG 282 ==
LOC: ER 01:25 → OVERFLOW 10:55 → WEST WING 15:01
PROVIDERS: ADMIT Registered Nurse; ATTEND Hospitalist
DX: K85.20 Alcohol induced acute pancreatitis without necrosis or infection (principal); K74.60 Unspecified cirrhosis of liver; E87.6 Hypokalemia; F10.10 Alcohol abuse, uncomplicated; F14.10 Cocaine abuse, uncomplicated; I10 Essential (primary) hypertension; N39.0 Urinary tract infection, site not specified; F17.210 Nicotine dependence, cigarettes, uncomplicated; J45.909 Unspecified asthma, uncomplicated; F32.A Depression, unspecified; F41.9 Anxiety disorder, unspecified; R74.8 Abnormal levels of other serum enzymes; K76.0 Fatty (change of) liver, not elsewhere classified; F12.90 Cannabis use, unspecified, uncomplicated; Z20.822 Contact with and (suspected) exposure to COVID-19
CPT/HCPCS: 36415; 71045; 74177; 80048; 80053; 80061; 80307; 80320; 81001; 83690; 83735; 84702; 85025; 85610; 93005; 96361; 96374; 96375; C9113; G0378; J0696; J1885; J2405